=== PATIENT | female | born 1995 | race Caucasian/White ===

== ENCOUNTER 2024-01-29 05:22 | Emergency (ER) | payer OTHER, SELFPAY ==
[2024-01-29 05:23] VITALS: BP 98/86; PULSE 110; RESP 16; TEMP 36.8; O2SAT 97; BMI 22.4
--- NOTE | 2024-01-29 05:46 | EDS_ITS ---
HPI HPI - Psych History of Present Illness Chief Complaint: Mental Health Informant: patient, EMS and police/busboy Onset/Context/Timing Onset: Today Timing: Continuous Current Severity: Mild Maximum Severity: Mild Associated Symptoms Associated Symptoms - Psych: Negative for Suicidal Thoughts Specific plan (suicidal thought): No suicidal plan. Narrative Narrative: 28-year-old female who denies any significant past medical history and also states she is currently on no medications. Reportedly she was concerned for her safety. Thought there were men coming to get her. Michael told her that men were coming to get her. She got her sister and he left the home. They went to a neighbor's home in a local business. Police and paramedics were called. They brought her in. They stated that the patient does have a history of mental heal th issues. Prior similar symptoms: Yes Recent Illness/Hospitalization: No PFSH PFSH Medical History unable to obtain no medical history Home Medications NK 01/29/24 [History Last Taken Unknown] Allergy/AdvReac Type Severity Reaction Status Date / Time No Known Allergies Allergy Verified 01/29/24 05:30 Surgical History no surgical history no surgical history Social History Smoking Status: Never smoker ROS ROS ED ROS Narrative Patient denies any recent illness. Review of Systems ROS Unobtainable: Denies due to encephalopathy Constitutional Constitutional ED: Denies chills or fever(s) Eyes Eyes: Denies blurry vision ENT ENT ED: Denies ear pain Cardiovascular Cardiovascular: Denies chest pain or palpitations Respiratory/Chest Respiratory/Chest: Denies cough or dyspnea Gastrointestinal Gastrointestinal: Denies abdominal pain, diarrhea, nausea or vomiting Genitourinary Genitourinary ED: Denies dysuria or hematuria Musculoskeletal Musculoskeletal: Denies arthralgias or back pain Integumentary Denies abscess or Abrasions Neurologic Neurologic: Denies headache(s) Psychiatric Psychiatric: Reports other Details: Paranoia. Believes men are out to get her. ; Denies anxiety, depression, suicidal ideation or suicidal thoughts Endocrine Endocrinology: Denies polydipsia or polyphagia Hematologic/Lymphatic Hematologic/Lymphatic: Denies easy bleeding Allergic/Immunologic Allergic/Immunologic ED: Denies mouth swelling EXAM Physical Exam Narrative Exam Narrative: 28-year-old female no acute distress. Sitting upright in bed. Vital signs are stable afebrile. H EENT exam unremarkable. Pupils round reactive light. Extra motions are intact. Normal speech. No facial droop. No trauma. Neck nontender. No lymphadenopathy. Lungs clear to auscultation bilaterally. Heart regular rhythm no murmur. Rate about 100. Chest wall nontender. Abdomen soft nontender. Moving all 4 extremities. Normal early interventionist strength. Normal dorsi plantarflexion. No edema. Back nontender. Neurologically she is awake and alert. Answering questions following commands. Patient is cooperative. She is not very outgoing. She does make eye contact. Const Vital Signs: 01/29/24 05:23 Temperature 98.3 F Temperature Source Oral Pulse Rate 110 H Respiratory Rate 16 Blood Pressure 98/86 H Blood Pressure Mean 90 Pulse Ox 97 Oxygen Delivery Method Room Air Positive well nourished and well developed; Negative for obese, cachectic, contractures or unkempt General Appearance ED: well developed and NAD; Negative for unkempt, cachectic, contractures or pallor Nutritional Appearance: Negative for cachectic or obese HEENT Reports moist mucous membranes normocephalic and atraumatic; Negative for trauma or tenderness Eyes PERRL and EOMs intact bilaterally General Eye ED: Negative for pale conjunctiva or scleral icterus Neck no lymphadenopathy, supple and no JVD General: Negative for tenderness or other Resp normal respiratory effort and clear to auscultation bilaterally Effort and Inspection: Negative for retractions Auscultation: Negative for rales, rhonchi, wheezes or diminished lung sounds Cardio S1 normal heart sound, S2 normal heart sound and no murmurs Rate: regular rate Rhythm: regular rhythm GI non-tender, non-distended and no masses Inspection: Negative for abdominal distention Auscultation: normoactive bowel sounds Palpation: soft; Negative for tender or guarding Back/Spine no CVA tenderness General Back: Negative for CVA tenderness Cervical Spine: Negative for cervical spine tenderness Thoracic Spine / Upper Back: Negative for thoracic spinal tenderness Lumbar Spine / Lower Back: Negative for lumbar spinal tenderness Coccyx: Negative for other Extremity normal to inspection General Extremety ED: Negative for edema or tenderness General Extremity: Negative for edema Neuro oriented x3 and CN's II-XII intact bilaterally Sensorium / Orientation: alert, oriented to person, oriented to place and oriented to time; Negative for orientation impaired or confused Motor Exam: strength 5/5 throughout Psych cooperative, speech normal, activity/motor behavior normal and denies suicidal ideation; Negative for mental status grossly normal Appearance: grossly normal, appropriate and well kempt; Negative for unkempt, disheveled, bizarre or intubated Attitude: calm, engaged, paranoid, withdrawn, No bizarre, No uncooperative, No evasive, No guarded, No belligerent, No agitated, No aggressive and No hostile Activity / Motor Behavior: appropriate eye contact Speech: normal speech Mood & Affect: anxious and flat affect Thought Process: normal thought process Thought Content: normal thought content Attention / Concentration: attention grossly intact Memory / Cognition: memory grossly intact Insight: insight good Judgement: judgement good Skin General Skin Exam: Negative for jaundice or pallor Lesions: no lesions Rashes: no rashes Trauma: Negative for abrasion or laceration Wounds: Negative for amputation or wounds noted MDM MDM MDM Narrative Medical decision making narrative: 28-year-old female who is para believe this is a group of men out to get her. I do not think she is suicidal or homicidal. Medically she is cleared. She has a benign exam. She will go through ED mental health protocol with the labs. She will be a crisis evaluation. She has no prior ER evaluations or labs done at this facility. Repeat exam unchanged at 7:11 AM. I did discuss with the patient's's other sister and her [id number]. They state that this patient does have a history of mental health issues. She is currently not seeing a counselor or psychiatrist. She is currently on no medications. They believe that she may have schizophrenia. They are in agreement that she needs crisis evaluation. P atient be turned over to the morning physician awaiting crisis evaluation. History & Record Review Discussion w/independent historian: Patient Additional record(s) reviewed:: No prior records Lab Data Attestation: I reviewed the patient's lab results. Lab results narrative: CBC unremarkable. White count 1.8. H&H 14 and 41. Platelets 265. Electrolytes show potassium 3.3. Normal gap at 9. BUN 19 creatinine 0.6. Glucose 131. Talk screen negative. Alcohol negative. Serum test negative. Discharge Plan Triage Chief Complaint: Mental Health ED Provider: Andrew Harris Dx/Rx/DC Orders Clinical Impression: Acute paranoia Instructions: ED Schizophrenia, General Prescriptions: No Action NK Primary Care Provider: Vinh Zhu Referrals: Vinh Zhu, [Primary Care Provider] -
--- NOTE | 2024-01-29 06:06 | ED.RN ---
This RN asked the patient if she felt safe at home. At first, she said yes. Then she later said that she did not feel safe and that someone was attempting to kill her. I asked who and she could not reply/ would not reply.
--- NOTE | 2024-01-29 06:09 | ED.RN ---
This RN asked the patient if she felt safe at home. Initially, the patient said yes. However, later on she stated that someone was attempting to kill her. This RN asked how and who was trying and the patient refused to answer.
[2024-01-29 06:23] VITALS: RESP 16
[2024-01-29 06:25] VITALS: RESP 14
[2024-01-29 06:43] LABS: Absolute Lymphocyte Count 0.59 X10^3/uL (0.83-4.51); Absolute Neutrophil Count 10.5 X10^3/uL (2.0-7.7); Basophil# 0.04 X10^3/uL; Basophil% 0.3 % (0-1); Lymphocyte # 0.59 X10^3/ul (0.83-4.51); Mean Corp Hgb Conc 34.1 g/dL (32-36); Mean Corpuscular Hgb 30.2 pg (27.0-32.0); Mean Corpuscular Volume 88.4 fL (81-99); Mean Platelet Vol. 9.3 fl (6.2-12.0); Monocyte% 5.1 % (0-10); NRBC Flagged by Analyzer 0 % (0-5); Neutrophil # 10.47 X10^3/uL (2.7-7.7); Neutrophil % 89.2 % (47-70); POSITIVE DIFFERENTIAL YES; Platelet Count 265 K/mm3 (150-450); RBC Distribution Width CV 12.3 % (11.6-14.6); RBC Distribution Width SD 39.6 fl (35.1-43.9); Red Blood Count 4.64 M/mm3 (4.2-5.4); White Blood Count 11.8 K/mm3 (4.4-11.0)
[2024-01-29 06:52] LABS: Internal QC Validated? YES +Cl - CLEAR BKGD; Pregnancy, Serum, hCG Quali. NEGATIVE Negative
[2024-01-29 06:58] LABS: Anion Gap 9 (5-15); BUN 19 mg/dL (7-18); BUN/Creat Ratio 27.7 RATIO (10-20); Calcium,Total 9.6 mg/dL (8.5-10.1); Chloride 104 mmol/L (98-107); Creatinine, Serum 0.68 mg/dL (0.55-1.02); EST Glomerular Filtration Rate 108 mL/min (>60); Est Glom Filt Rate - Afr Amer 130 mL/min (>60); Estimated Creatinine Clearance 114.28 ml/min; Glucose 131 mg/dL (74-106); Potassium 3.3 mmol/L (3.5-5.1); Sodium Level 137 mmol/L (136-145)
--- NOTE | 2024-01-29 07:01 | ED.RN ---
[facility] CALLED TO LET THEM KNOW PT WILL NEED EVALUATED. FAXING OVER [facility]ARANCE.
[2024-01-29 07:03] LABS: Amphetamine Urine VISTA NEGATIVE (<1000 ng/mL); Barbiturate Urine VISTA NEGATIVE (< 200 ng/mL); Benzodiazepine Urine VISTA NEGATIVE (< 200 ng/mL); Cocaine Urine VISTA NEGATIVE (< 300 ng/mL); Ecstacy Urine VISTA NEGATIVE (< 500 ng/mL); Methadone Urine VISTA NEGATIVE (< 300 ng/mL); PCP Urine VISTA NEGATIVE (< 25 ng/mL); THC Urine VISTA NEGATIVE (< 50 ng/mL); Vista UDS pH Range 5
--- NOTE | 2024-01-29 10:43 | ED.RN ---
RECEIVED CALL FROM [facility] @ 1014, SPOKE TO MARITZA. SHE ASKED TO CONFIRM PTS INSURANCE- TOLD HER PT DOES NOT HAVE AN [employer] FUND CARD AND THINKS SHE HAS [employer] (THIS IS WHAT IS LISTED IN HER INSURANCE ON CHART). FAMILY TOLD REGISTRATION THEY WERE NOT SURE IF SHE HAD ANY SORT OF CARD WITH HER. [facility] [place] CALLED BACK @1029 ASKING FOR HER SOCIAL SECURITY NUMBER, SPOKE TO MITZY. PT STATED SHE DOESN'T KNOW HER SOCIAL AND DIDN'T SEEM SURE SHE HAD ONE AT ALL. [facility] [place] CALLED BACK AGAIN @ 1041, SPOKE WITH MARITZA. SHE ASKED US TO CONFIRM PTS ADDRESS, WE CONFIRMED IT [id number] [place] [address]. SHE STATED THAT ADDRESS IS [facility], NOT [facility]. THIS MEANS SHE WOULD HAVE TO CALL THEIR CRISIS UNIT AND HAND THE CASE OFF TO THEM.
--- NOTE | 2024-01-29 11:30 | ED.RN ---
RECEIVED CALL FROM [facility] @2711, SPOKE WITH MARITZA. SHE STATED PT IS REFERRED TO [facility]. SHE GOT IN TOUCH WITH [facility] AND THEY HAVE PTS INFORMATION, JUST REQUESTED PTS PINK SLIP BE FAXED OVER. FAXED AT [phone]. SHE STATED THE [employer] BOARD APPROVED FUNDING FOR A SINGLE CASE AGREEMENT WITH [facility]. IF WE NEED TO CONTACT THE [employer] BOARD, THEIR CONTACT WOULD BE MACY AT [phone]
--- NOTE | 2024-01-29 12:26 | ED.RN ---
ACCEPTED @ [facility], ROOM 110-B, BY DR. LAGUNAS, NURSE TO NURSE # [phone]. REQUESTED PINK SLIP BE FAXED. FAXED PINK SLIP ADDRESSED TO [facility] BY DR. KRISTINA IS FILLING ONE OUT FOR THEIR FACILITY.
--- NOTE | 2024-01-29 12:32 | ED.RN ---
[facility] CALLED, ETA 60-90 MIN ([phone])
[2024-01-29 13:40] VITALS: BP 120/76; PULSE 109; RESP 16; TEMP 37.1; O2SAT 97
--- NOTE | 2024-01-29 14:00 | ED.RN ---
Report given to Moon JONES at [facility].
--- NOTE | 2024-01-29 22:04 | NURSING ---
Pt's sister, Helena, called in and asked where pt was sent. [facility] is on the contact list. this rn called to the ER. Pt was sent by [facility] to [facility]. notified sister.
== END 2024-01-29 13:55 ==
PROVIDERS: Emergency Provider Emergency Medicine; PCP Family Medicine; Visit Provider Emergency Medicine
DX: F22 Delusional disorders (principal)
CPT/HCPCS: 80048; 80307; 80320; 84703; 85025; 99283; G0480

== ENCOUNTER 2024-02-09 00:25 | Emergency (ER) | payer OTHER, SELFPAY ==
[2024-02-09] VITALS (7 sets, daily range): BP systolic 111–127; BP diastolic 68–89; PULSE 68–108; RESP 14–18; TEMP 36.6–37; O2SAT 97–99; BMI 22.6
--- NOTE | 2024-02-09 00:33 | EDS_ITS ---
HPI History of Present Illness Chief Complaint: Mental Health Informant: patient Onset/Context/Timing Onset: Today Timing: Continuous Associated Symptoms Associated Symptoms: Negative for suicidal ideation or homicidal ideation Narrative Narrative: Patient presents with paranoid ideations that became worse tonight. Patient states she is hearing voices. Patient thinks that people are out to get her. Patient denies any suicidal ideations. Patient was recently admitted to [facility] for this. Patient was started on Abilify and Depakote. Patient denies any chest pain or shortness of breath. Patient denies any nausea or vomiting. Patient denies any recent fevers or chills. [facility] Medical History (Updated 02/09/24 @ 07:[address] Craig Zavala DO) Bipolar disorder Paranoid schizophrenia Home Medications aripiprazole 15 mg tablet (Abilify) 15 mg PO DAILY 02/09/24 [History Last Taken Unknown] divalproex 250 mg tablet,delayed release (Depakote) 250 mg PO BID 02/09/24 [ History Last Taken Unknown] Allergy/AdvReac Type Severity Reaction Status Date / Time No Known Allergies Allergy Verified 02/09/24 00:26 Surgical History no surgical history no surgical history Social History Smoking Status: Never smoker ROS ROS ED Constitutional Constitutional ED: Denies chills or fever(s) Eyes Eyes: Denies blurry vision or change in vision ENT ENT ED: Denies rhinorrhea or sore throat Cardiovascular Cardiovascular: Denies chest pain or palpitations Respiratory/Chest Respiratory/Chest: Denies cough or dyspnea Gastrointestinal Gastrointestinal: Denies nausea or vomiting Genitourinary Genitourinary ED: Denies dysuria or hematuria Musculoskeletal Musculoskeletal: Reports back pain; Denies neck pain Integumentary Denies abscess or rash Neurologic Neurologic: Denies headache(s) or weakness Psychiatric Psychiatric: Denies suicidal ideation or suicidal thoughts Allergic/Immunologic Allergic/Immunologic ED: Denies mouth swelling or urticaria EXAM Physical Exam Const Vital Signs: 02/09/24 00:26 02/09/24 01:25 02/09/24 02:00 Temperature 98.2 F Temperature Source Temporal Pulse Rate 108 H Respiratory Rate 18 16 16 Blood Pressure 122/82 H 111/89 H 111/89 H Blood Pressure Mean 95 96 96 Pulse Ox 97 Oxygen Delivery Method Room Air 02/09/24 03:00 Temperature Temperature Source Pulse Rate 105 H Respiratory Rate 18 Blood Pressure 113/87 H Blood Pressure Mean 95 Pulse Ox 99 Oxygen Delivery Method Room Air Positive well nourished and well developed General Appearance ED: well developed and NAD HEENT Reports moist mucous membranes atraumatic Neck supple and no JVD Resp normal respiratory effort and clear to auscultation bilaterally Cardio regular rate and regular rhythm GI soft to palpation, non-tender and non-distended Neuro CN's II-XII intact bilaterally and no sensory deficits noted [place] Coma Scale: document GCS findings Spontaneous Obeys Commands Oriented 15 Sensorium / Orientation: alert Motor Exam: strength 5/5 throughout Psych Attitude: calm Activity / Motor Behavior: avoids eye contact Speech: soft Mood & Affect: depressed and flat affect MDM MDM MDM Narrative Medical decision making narrative: Medical screening labs will be obtained. Suicide precautions will be maintained. CBC will be obtained to assess for leukocytosis and anemia. Basic metabolic profile will be obtained to assess for electrolyte abnormality and renal function. Family will be obtained to assess for . Serum alcohol level came to the past for alcohol intoxication. Urine tox screen will be obtained to assess for substance abuse. Depakote level will be obtained to assess for Depakote toxicity. Lab Data Attestation: I reviewed the patient's lab results. Lab results narrative: CBC was reviewed and was within normal limits. Basic metabolic profile was reviewed and was within normal limits. Serum hCG was reviewed and was negative. Valproic acid level was reviewed and was slightly subtherapeutic at 40. Urine tox screen was reviewed and was negative. Serum alcohol level was reviewed and was less than 3.0. Labs: Laboratory Results - last 24 hr 02/09/24 02/09/24 01:15 03:20 WBC 8.3 RBC 4.29 Hgb 13.2 Hct 39.1 MCV 91.1 MCH 30.8 MCHC 33.8 RDW Std Deviation 41.4 RDW Coeff of Carmela 12.6 Plt Count 209 MPV 9.0 Immature Gran % (Auto) 0.200 Neut % (Auto) 74.3 H Lymph % (Auto) 18.6 L Divide % (Auto) 6.5 Eos % (Auto) 0.2 Baso % (Auto) 0.2 Absolute Neuts (auto) 6.2 Absolute Lymphs (auto) 1.54 Nucleated RBC % 0 Sodium 138 Potassium 3.6 Chloride 102 Carbon Dioxide 30.0 Anion Gap 6 BUN 12 Creatinine 0.60 Estim Creat Clear Calc 129.51 Est GFR (MDRD) Af Amer 152 Est GFR (MDRD) Non-Af 125 BUN/Creatinine Ratio 20.0 Glucose 103 Calcium 9.3 Serum , Qual NEGATIVE Urine Opiates Screen NEGATIVE Urine Methadone Screen NEGATIVE Ur Barbiturates Screen NEGATIVE Valproic Acid 40 L Ur Phencyclidine Scrn NEGATIVE Ur Amphetamines Screen NEGATIVE MDMA (Ecstasy) Screen NEGATIVE U Benzodiazepines Scrn NEGATIVE Urine Cocaine Screen NEGATIVE U Cannabinoids Screen NEGATIVE Ur Drug Screen Comment Ethyl Alcohol < 3.0 Treatment and Re-Evaluation Narrative: Patient is medically cleared for crisis evaluation. Crisis will be in to e valuate the patient. Care of the patient will be turned over the oncoming physician pending crisis evaluation. Discharge Plan Triage Chief Complaint: Mental Health ED Provider: Craig Zavala Dx/Rx/DC Orders Clinical Impression: Bipolar disorder, Paranoid schizophrenia Prescriptions: No Action aripiprazole [Abilify] 15 mg tablet 15 mg PO DAILY divalproex [Depakote] 250 mg tablet,delayed release (DR/EC) 250 mg PO BID Primary Care Provider: Vinh Zhu Referrals: Vinh Zhu, [Primary Care Provider] -
[2024-02-09 01:39] LABS: Internal QC Validated? YES +Cl - CLEAR BKGD
[2024-02-09 01:40] LABS: Alcohol, Blood (Medical)-Serum < 3.0 mg/dL
[2024-02-09 01:42] LABS: Anion Gap 6 (5-15); BUN 12 mg/dL (7-18); Calcium,Total 9.3 mg/dL (8.5-10.1); Chloride 102 mmol/L (98-107); EST Glomerular Filtration Rate 125 mL/min (>60); Est Glom Filt Rate - Afr Amer 152 mL/min (>60); Estimated Creatinine Clearance 129.51 ml/min; Glucose 103 mg/dL (74-106); Potassium 3.6 mmol/L (3.5-5.1); Sodium Level 138 mmol/L (136-145)
[2024-02-09 01:43] LABS: Absolute Lymphocyte Count 1.54 X10^3/uL (0.83-4.51); Absolute Neutrophil Count 6.2 X10^3/uL (2.0-7.7); Basophil# 0.02 X10^3/uL; Basophil% 0.2 % (0-1); Eosinophil# 0.02 X10^3/uL; Eosinophils% 0.2 % (0-5); Hematocrit 39.1 % (37-47); Hemoglobin 13.2 g/dL (12.0-15.0); Lymphocyte # 1.54 X10^3/ul (0.83-4.51); Lymphocyte % 18.6 % (19-41); Mean Corp Hgb Conc 33.8 g/dL (32-36); Mean Corpuscular Hgb 30.8 pg (27.0-32.0); Mean Corpuscular Volume 91.1 fL (81-99); Monocyte# 0.54 X10^3/uL; Monocyte% 6.5 % (0-10); NRBC Flagged by Analyzer 0 % (0-5); Neutrophil # 6.16 X10^3/uL (2.7-7.7); Neutrophil % 74.3 % (47-70); Platelet Count 209 K/mm3 (150-450); RBC Distribution Width CV 12.6 % (11.6-14.6); RBC Distribution Width SD 41.4 fl (35.1-43.9); Red Blood Count 4.29 M/mm3 (4.2-5.4); White Blood Count 8.3 K/mm3 (4.4-11.0)
[2024-02-09 01:50] LABS: Valproic Acid (Depakene) Level 40 ug/mL (50-100)
[2024-02-09 03:59] LABS: Pregnancy, Serum, hCG Quali. NEGATIVE Negative (0-9 Nonpreg)
[2024-02-09 04:20] LABS: Amphetamine Urine VISTA NEGATIVE (<1000 ng/mL); Barbiturate Urine VISTA NEGATIVE (< 200 ng/mL); Benzodiazepine Urine VISTA NEGATIVE (< 200 ng/mL); Cocaine Urine VISTA NEGATIVE (< 300 ng/mL); Ecstacy Urine VISTA NEGATIVE (< 500 ng/mL); Methadone Urine VISTA NEGATIVE (< 300 ng/mL); PCP Urine VISTA NEGATIVE (< 25 ng/mL); THC Urine VISTA NEGATIVE (< 50 ng/mL); Vista UDS pH Range 7
[2024-02-09] MEDS: ARIPiprazole 5 MG Tablet 15 MG PO (13:22)
[2024-02-09] MEDS: Divalproex Sodium 250 MG Tablet PO (13:22)
--- NOTE | 2024-02-09 13:23 | NURSING ---
[facility] UN[address] JON NURSE TO NURSE [phone]
--- NOTE | 2024-02-09 13:50 | NURSING ---
PHYSICANS CALLED BY [facility]. ETA IS 2 HOURS
== END 2024-02-09 14:43 ==
LOC: ED 00:39
PROVIDERS: Emergency Provider Emergency Medicine; PCP Family Medicine; Visit Provider Emergency Medicine
DX: F20.0 Paranoid schizophrenia (principal); F31.9 Bipolar disorder, unspecified
CPT/HCPCS: 36415; 80048; 80164; 80307; 80320; 84703; 85025; 99285; G0480